=== PATIENT | male | born 2000 | race African-American/Black ===

== ENCOUNTER 2021-02-14 14:23 | Emergency (ER) | payer OTHER ==
[2021-02-14 14:46] VITALS: BP 115/73; PULSE 80; TEMP 98.6; BMI 37.2
== END 2021-02-14 17:05 | disposition home or self-care (01) ==
LOC: JERFT 14:23
DX: S93.402A Sprain of unspecified ligament of left ankle, initial encounter (principal); W18.43XA Slipping, tripping and stumbling without falling due to stepping from one level to another, initial encounter; V53.4XXA Person boarding or alighting a pick-up truck or van injured in collision with car, pick-up truck or van, initial encounter
CPT/HCPCS: 73610-TC-LT-FY; 73630-TC-LT; 99283-25